=== PATIENT | female | born 1995 | race Caucasian/White ===

== ENCOUNTER 2017-05-19 14:46 | Emergency (ER) | payer SELFPAY ==
[~2017-05-19] VITALS: Ht 165.1 cm; Wt 66.2 kg
--- NOTE | 2017-05-19 15:21 | ED GU-Female ---
General Chief Complaint: -Female Stated Complaint: VAG BLEEDING 5 WKS PREG Nursing Triage Note: PT REPORTS SHE IS APPROX 5 WEEKS . SHE STATES SHE BEGAN BLEEDING LAST NOC AND HAS WORSENING BLEEDING TODAY. SHE IS ALSO C/O ABD CRAMPING. Nursing Sepsis Screen: No Definite Risk Source: patient Exam Limitations: no limitations History of Present Illness Time seen by provider: 15:19 Initial Comments 21-year-old female patient presents to the emergency department complaints of vaginal spotting beginning last night. States she is approximately 5 weeks . Was seen earlier today at the [facility] with a positive urine test done to confirm . Has not seen an OB/ FABRIC AWNING REPAIRER for this . Timing/Duration: yesterday, getting worse Severity/Quality: cramping Location: suprapubic Radiation: none Activities at Onset: none Prior Genitourinary Problems: none Sexual [place] History: less than 2 months ago, single partner Allergies and Home Medications Allergies Coded Allergies: No Known Drug Allergies (Unverified , 05/19/17) Constitutional: No chills, No fever, No malaise Respiratory: no symptoms reported Cardiovascular: no symptoms reported Gastrointestinal: see HPI, No constipation, No diarrhea, No loss of appetite, No nausea, No vomiting Genitourinary: denies burning, denies discharge, denies dysuria, denies frequency, denies flank pain, denies pain, other (vaginal bleeding) : Yes LMP: Apr 07, 2017 Musculoskeletal: No back pain Skin: no symptoms reported Psychiatric/Neurological: No Symptoms Reported All Other Systemes Reviewed Negative Unless Noted: Yes (Negative excepted noted.) Past Mdtotau-Mohjjb-Soryva Hx Patient Social History Alcohol Use: Denies Use Recreational Drug Use: No Smoking Status: Never a Smoker 2nd Hand Smoke Exposure: No Recent Foreign Travel: No Contact w/Someone Who Travel: No Recent Infectious Disease Expo: No Recent Hopitalizations: No Seasonal Allergies Seasonal Allergies: No Surgeries HX Surgeries: No Respiratory Hx Respiratory Disorders: No Cardiovascular Hx Cardiac Disorders: No Neurological Hx Neurological Disorders: No Reproductive System : Yes Hx : 1 Hx Para: 0 Hx Total # of Abortions (Spona: 0 Female Reproductive Disorders: Denies Genitourinary Hx Genitourinary Disorders: No Gastrointestinal Hx Gastrointestinal Disorders: No Musculoskeletal Hx Musculoskeletal Disorders: No Endocrine Hx Endocrine Disorders: No Reviewed Nursing Assessment Reviewed/Agree w Nursing PMH: Yes Family Medical History Significant Family History: No Pertinent Family Hx Physical Exam Vital Signs Vital Sign - Last 12Hours 05/19/17 14:58 Temp 96.2 Pulse 75 Resp 16 B/P (MAP) 118/68 Pulse Ox 100 O2 Delivery Room Air Capillary Refill : Less Than 3 Seconds General Appearance: WD/WN, no apparent distress HEENT: PERRL/EOMI, pharynx normal Neck: supple, normal inspection Cardiovascular: normal peripheral pulses, regular rate, rhythm, no edema, no murmur Respiratory: lungs clear, normal breath sounds, no respiratory distress Gastrointestinal: normal bowel sounds, non tender, soft, no organomegaly Back: normal inspection Extremities: no pedal edema, normal capillary refill Neurologic/Psychiatric: alert, normal mood/affect, oriented x 3 Skin: normal color, warm/dry Progress/Results/Core Measures Results/Orders Lab Results Laboratory Tests Test 05/19/17 15:28 05/19/17 16:48 Range/Units Human Chorionic Gonadotropin, Quant 558 H <5 MIU/ML Urine Color RED H Urine Clarity BLOODY H Urine pH 5 5-9 Urine Specific [place] 1.020 1.016-1.022 Urine Protein 3+ H NEGATIVE Urine Glucose (UA) NEGATIVE NEGATIVE Urine Ketones NEGATIVE NEGATIVE Urine Nitrite NEGATIVE NEGATIVE Urine Bilirubin NEGATIVE NEGATIVE Urine Urobilinogen NORMAL NORMAL MG/DL Urine Leukocyte Esterase 2+ H NEGATIVE Urine RBC (Auto) 5+ H NEGATIVE Urine RBC TNTC H /HPF Urine WBC 5-10 H /HPF Urine Crystals NONE /LPF Urine Bacteria NONE /HPF Urine Casts NONE /LPF Urine Mucus NEGATIVE /LPF Urine Culture Indicated YES My Orders Orders - GEETHA HILL Hcg,Quantitative (05/19/17 15:11) Ua Culture If Indicated (05/19/17 15:11) Us Ob Transvaginal [id number] (05/19/17 15:11) Urine Culture (05/19/17 16:48) Vital Signs/I&O Vital Sign - Last 12Hours 05/19/17 14:58 Temp 96.2 Pulse 75 Resp 16 B/P (MAP) 118/68 Pulse Ox 100 O2 Delivery Room Air Blood Pressure Mean: 85 Diagnostic Imaging Diagonstic Imaging: Ultrasound Plain Films/CT/US/NM/MRI: pelvis Comments FINDINGS: The uterus demonstrates along the fundal area of the endometrium, a tiny cystic area measuring 0.4 cm in mean sac diameter. No embryo or yolk sac can be identified. There is no focal myometrial mass. The ovaries demonstrate normal follicles and vascularity with color Doppler. No adnexal mass or pelvic fluid collection or hemorrhage noted. IMPRESSION: A 4 mm cystic area in the upper aspect of the endometrium is seen. Differential considerations are very early normal , failed , or occult ectopic . Correlation with serial beta-hCG and follow-up ultrasound is recommended. Dictated on workstation # [id number] Reviewed: Reviewed by Me (radiology report reviewed by me) Departure Communication Progress Notes Laboratory and diagnostic findings discussed with the patient. Patient refuses pelvic exam at this time. States she would like to follow-up with the automotive internet sales consultant as an outpatient for pelvic exam. I discussed risks, benefits, and possible complications associated with not performing the pelvic exam in the emergency department. Patient voices understanding and continues to decline pelvic exam. Impression Impression: Primary Impression: Threatened miscarriage in early Additional Impression: Urinary tract infection Disposition: HOME, SELF-CARE Condition: Improved Departure-Patient Inst. Decision time for Depature: 16:52 Referrals: CHARLEY OATES BETHANY N MD FENECH,TOMAS LEWIS MD, DENNIS G MD NO,LOCAL PHYSICIAN (PCP) Primary Care Physician LOGAN BLAND DO Patient Instructions: Threatened Miscarriage (DC) Add. Discharge Instructions: All discharge instructions reviewed with patient and/or family. Voiced understanding. Tylenol extra strength [id number] as directed for pain if needed. Drink plenty of fluids. No strenuous activity, intercourse, or use of tampons until released by your attrition. Follow-up with the automotive internet sales consultant of your choice as an outpatient in the next 2-3 days to establish care and for repeat ultrasound. Repeat labs in 3 days and follow-up with your automotive internet sales consultant for results. Call tomorrow morning for appointment time. Return to the emergency department for worsened pain, fever, vaginal bleeding with greater than 2 pads per hour for greater than 2 hours, vaginal discharge, or any other concerns. Scripts Nitrofurantoin Monohyd/M-Cryst (Macrobid 100 mg Capsule) 100 Mg Capsule 1 TAB PO BID, #6 CAP 0 Refills Prov: GEETHA HILL 05/19/17 GEETHA HILL 25, 2017 15:21
--- NOTE | 2017-05-19 16:24 | Diagnostic Imaging Report ---
Transvaginal pelvic ultrasound. INDICATION: Positive test. FINDINGS: The uterus demonstrates along the fundal area of the endometrium, a tiny cystic area measuring 0.4 cm in mean sac diameter. No embryo or yolk sac can be identified. There is no focal myometrial mass. The ovaries demonstrate normal follicles and vascularity with color Doppler. No adnexal mass or pelvic fluid collection or hemorrhage noted. IMPRESSION: A 4 mm cystic area in the upper aspect of the endometrium is seen. Differential considerations are very early normal , failed , or occult ectopic . Correlation with serial beta-hCG and follow-up ultrasound is recommended. Dictated by: Dictated on workstation # [id number]
[2017-05-19 16:58] LABS: BILIRUBIN,URINE NEGATIVE (NEGATIVE); KETONES,URINE NEGATIVE (NEGATIVE); LEUKOCYTE ESTERASE ,URINE 2+ (NEGATIVE); NITRITE,URINE NEGATIVE (NEGATIVE); PH,URINE 5 (5-9); PROTEIN,URINE 3+ (NEGATIVE); UROBILINOGEN,URINE NORMAL (NORMAL)
[2017-05-19] MEDS ORDERED: NITR-65 PO (17:10)
[2017-05-19 17:18] VITALS: BP 118/68
== END 2017-05-19 17:18 | disposition home or self-care (01) ==
LOC: ER 14:50
DX: O20.0 Threatened abortion (principal); O23.41 Unspecified infection of urinary tract in pregnancy, first trimester; Z3A.01 Less than 8 weeks gestation of pregnancy
CPT/HCPCS: 36415; 76817; 81000; 84702; 87088; 99283

== ENCOUNTER → 2017-05-21 | Outpatient (CLI) | payer SELFPAY ==
[~2017-05-21] MED LIST: NITR-65 PO
== END ==
LOC: LAB 17:05
PROVIDERS: ATTEND Physician Assistant
DX: O20.0 Threatened abortion (principal); Z3A.00 Weeks of gestation of pregnancy not specified
CPT/HCPCS: 36415; 84702